=== PATIENT | male | born 1950 | race Caucasian/White ===

== ENCOUNTER 2017-06-25 18:30 | Emergency (ER) | payer MEDICARE, OTHER | END 2017-06-25 20:07 | disposition home or self-care (01) | LOC: FTE 18:30 → E/R 20:07 | DX: J30.9 Allergic rhinitis, unspecified (principal); I10 Essential (primary) hypertension; E11.9 Type 2 diabetes mellitus without complications; Z79.84 Long term (current) use of oral hypoglycemic drugs | CPT/HCPCS: 99283 ==

== ENCOUNTER 2017-10-02 21:21 | Emergency (ER) | payer MEDICARE, OTHER | END 2017-10-03 00:34 | disposition home or self-care (01) | LOC: FTE 10-03 00:34 | DX: J02.9 Acute pharyngitis, unspecified (principal); E11.9 Type 2 diabetes mellitus without complications; I10 Essential (primary) hypertension | CPT/HCPCS: 71045; 99283-25 ==

== ENCOUNTER 2017-10-30 05:29 | Emergency (ER) | payer MEDICARE, OTHER | END 2017-10-30 06:27 | disposition home or self-care (01) | LOC: FTE 05:29 | DX: J20.9 Acute bronchitis, unspecified (principal); I10 Essential (primary) hypertension; E11.9 Type 2 diabetes mellitus without complications; Z79.84 Long term (current) use of oral hypoglycemic drugs | CPT/HCPCS: 99284 ==

== ENCOUNTER 2018-01-24 10:48 | Emergency (ER) | payer MEDICARE, OTHER ==
[2018-01-24 11:14] LABS: URINE BLOOD (Dip) POC Negative (NEGATIVE); URINE KETONES (Dip) POC Negative (NEGATIVE); URINE LEUKOCYTE EST (Dip) POC Negative (NEGATIVE); URINE NITRITE (Dip) POC Negative (NEGATIVE); URINE TOTAL PROTEIN POC 1+ (NEGATIVE)
[2018-01-24 11:14] LABS: URINE PH (Dip) POC 5.5 (5.0-8.5)
[2018-01-24 11:23] LABS: ADD UMIC NO; UR ASCORBIC ACID NEGATIVE (NEGATIVE); UR BILIRUBIN (Dip) NEGATIVE (NEGATIVE); UR BLOOD (Dip) NEGATIVE (NEGATIVE); UR CLARITY CLEAR (CLEAR); UR COLOR YELLOW (YELLOW); UR GLUCOSE (Dip) 2+ mg/dL (NEGATIVE); UR KETONES (Dip) NEGATIVE (NEGATIVE); UR LEUKOCYTE ESTERASE (Dip) NEGATIVE Leu/ul (NEGATIVE); UR NITRITE (Dip) NEGATIVE (NEGATIVE); UR SPECIFIC GRAVITY (Dip) 1.016 (1.003-1.030); UR TOTAL PROTEIN (Dip) NEGATIVE (NEGATIVE); UR UROBILINOGEN (Dip) NEGATIVE (NEGATIVE)
== END 2018-01-24 11:35 | disposition home or self-care (01) ==
LOC: E/R 10:48
DX: R35.0 Frequency of micturition (principal); E11.9 Type 2 diabetes mellitus without complications; I10 Essential (primary) hypertension; Z79.84 Long term (current) use of oral hypoglycemic drugs
CPT/HCPCS: 81003; 82962; 99283

== ENCOUNTER 2018-05-23 14:48 | Emergency (ER) | payer MEDICARE, OTHER | END 2018-05-23 15:57 | disposition home or self-care (01) | LOC: FTE 14:48 | DX: J06.9 Acute upper respiratory infection, unspecified (principal); I10 Essential (primary) hypertension; E11.9 Type 2 diabetes mellitus without complications; R40.2412 Glasgow coma scale score 13-15, at arrival to emergency department; Z79.84 Long term (current) use of oral hypoglycemic drugs | CPT/HCPCS: 99282 ==

== ENCOUNTER 2018-07-13 20:12 | Emergency (ER) | payer MEDICARE, OTHER ==
[2018-07-14] MEDS: BROMFENAC SODIUM 1.7 ML OPH DROP LEFT EYE (00:09)
== END 2018-07-14 02:04 | disposition home or self-care (01) ==
LOC: FTE 07-14 02:04
DX: S00.12XA Contusion of left eyelid and periocular area, initial encounter (principal); E11.9 Type 2 diabetes mellitus without complications; I10 Essential (primary) hypertension; Y04.2XXA Assault by strike against or bumped into by another person, initial encounter; Z79.84 Long term (current) use of oral hypoglycemic drugs
CPT/HCPCS: 70480; 99284-25